=== PATIENT | female | born 1970 | race Hispanic/Latino ===

== ENCOUNTER → 2017-11-20 | Outpatient (CLI) | payer BC | END | disposition home or self-care (01) | LOC: RAH 11:58 | PROVIDERS: ATTEND Orthopaedic Surgery | DX: S83.232A Complex tear of medial meniscus, current injury, left knee, initial encounter (principal); M17.12 Unilateral primary osteoarthritis, left knee; M25.462 Effusion, left knee; X58.XXXA Exposure to other specified factors, initial encounter; Y93.89 Activity, other specified; Y92.89 Other specified places as the place of occurrence of the external cause; Y99.8 Other external cause status | CPT/HCPCS: 73721 ==

== ENCOUNTER 2017-12-22 06:04 | Day surgery (SDC) | payer BC ==
[2017-12-21 13:26] VITALS: BP 145/82
[2017-12-21 13:33] LABS: BASOPHILS % (AUTO) 1.2 % (0.0-5.0); EOSINOPHILS % (AUTO) 1.6 % (0.0-8.0); HEMATOCRIT 40.4 % (36-48); MEAN CORPUSCULAR HGB CONC 33.7 g/dL (32.0-36.0); MONOCYTES % (AUTO) 4.9 % (3.0-13.0); NEUTROPHILS % (AUTO) 53.3 % (40.0-77.0); NUCLEATED RED BLOOD CELLS 0.1 % (0.0-0.19); PLATELET COUNT (AUTO) 329 K/uL (130-400); RED BLOOD CELL COUNT(AUTO) 4.26 MIL/uL (4.00-5.50); RED CELL DISTRIBUTION WIDTH 13.1 % (11.0-15.5); WHITE BLOOD COUNT (AUTO) 6.9 K/uL (4.8-10.8)
[2017-12-21 13:51] LABS: CREATININE 0.7 mg/dL (0.5-1.5); POTASSIUM 3.7 mmol/L (3.5-5.1)
[~2017-12-22] VITALS: Ht 170.2 cm; Wt 138.8 kg
[2017-12-22] VITALS (17 sets, daily range): BP systolic 122–158; BP diastolic 67–103
[~2017-12-22 06:04] MED LIST: LOSA25TA16 PO; TRAM-355 PO; progesterone PO
[2017-12-22] MEDS: CEFAZOLIN SODIUM 1 GM VIAL IVP SCH ×2 (06:30→09:50)
[2017-12-22] MEDS ORDERED: LACTATED RINGERS 1000ML 1,000 ML IV ONE (06:50)
[2017-12-22] MEDS ORDERED: CLINDAMYCIN 600 MG/D5% WATER 50 ML IV ONE (08:34)
[2017-12-22] MEDS ORDERED: SCOPOLAMINE HYDROBROMIDE 1 EACH ADH..PATCH TD ONE (08:45)
[2017-12-22] MEDS ORDERED: PROPOFOL 10 MG/ML 20ML VIAL IV ONE (08:53)
[2017-12-22] MEDS ORDERED: METOCLOPRAMIDE 10 MG/2 ML VIAL ONE (08:53)
[2017-12-22] MEDS ORDERED: ONDANSETRON HCL 4 MG/2 ML VIAL ONE (08:53)
[2017-12-22] MEDS ORDERED: LIDOCAINE PF 2% 5ML ABBOJECT ONE (08:53)
[2017-12-22] MEDS ORDERED: DEXAMETHASONE SOD PHOSPHATE 10MG/ML 1ML VIAL ONE (08:53)
[2017-12-22] MEDS ORDERED: FENTANYL CITRATE PF 50 MCG/1 ML 2ML VIAL ONE ×3 (08:54→11:04)
[2017-12-22] MEDS ORDERED: MIDAZOLAM HCL 1 MG/ML 2ML VIAL ONE (08:54)
[2017-12-22] MEDS ORDERED: FAMOTIDINE/PF 20 MG/2 ML VIAL IV ONE (09:00)
[2017-12-22] MEDS ORDERED: SUCCINYLCHOLINE 200MG/10ML SYR ONE (10:05)
[2017-12-22] MEDS ORDERED: TYL3 PO (11:10)
[2017-12-22] MEDS ORDERED: CEPH500B PO (11:10)
[2017-12-22] MEDS ORDERED: NAPR-1192 PO (11:10)
[2017-12-22] MEDS ORDERED: KETOROLAC TROMETHAMINE 30MG/ML ONE (11:28)
[2017-12-22] MEDS ORDERED: MORPHINE SULFATE 2 MG/ML 1ML SYG ONE (11:38)
[2017-12-22] MEDS ORDERED: MEPERIDINE-PF 25 MG/ML SYG ONE (11:49)
== END 2017-12-22 13:48 | disposition home or self-care (01) ==
LOC: DAH 06:04
PROVIDERS: ATTEND Orthopaedic Surgery
DX: S83.232A Complex tear of medial meniscus, current injury, left knee, initial encounter (principal); X58.XXXA Exposure to other specified factors, initial encounter; Y93.9 Activity, unspecified; Y92.89 Other specified places as the place of occurrence of the external cause; Y99.9 Unspecified external cause status; M94.262 Chondromalacia, left knee; Z68.42 Body mass index [BMI] 45.0-49.9, adult; I10 Essential (primary) hypertension; Z79.899 Other long term (current) drug therapy; Z98.890 Other specified postprocedural states; Z95.5 Presence of coronary angioplasty implant and graft; Z98.51 Tubal ligation status; E66.01 Morbid (severe) obesity due to excess calories
CPT/HCPCS: 29881; 36415; 80048; 85025; A4606; A4649; A4930 ×2; A6223; J0330; J0690; J1100; J1885; J2001; J2175; J2250; J2405; J2704; J2765; J3010 ×3; J3490 ×2; J7120

== ENCOUNTER 2018-04-06 16:51 | Emergency (ER) | payer BC, OTHER ==
[~2018-04-06 16:51] MED LIST changes: +CEPH500B PO; -LOSA25TA16 PO; +LOSA25TA41 PO; +NAPR-1192 PO; -TRAM-355 PO; +TYL3 PO
[2018-04-06] MEDS ORDERED: ACETAMINOPHEN-CODEINE 300/30MG TAB ONE (17:51)
== END 2018-04-06 17:58 | disposition home or self-care (01) ==
LOC: EDH 16:51
DX: S80.12XA Contusion of left lower leg, initial encounter (principal); S20.221A Contusion of right back wall of thorax, initial encounter; M54.5 Low back pain; I10 Essential (primary) hypertension; Z90.710 Acquired absence of both cervix and uterus; Z98.890 Other specified postprocedural states; W01.10XA Fall on same level from slipping, tripping and stumbling with subsequent striking against unspecified object, initial encounter; Y93.89 Activity, other specified; Y92.89 Other specified places as the place of occurrence of the external cause; Y99.8 Other external cause status
CPT/HCPCS: 72040; 72100; 73010; 73590